=== PATIENT | female | born 1990 | race African-American/Black ===

== ENCOUNTER 2024-02-26 08:58 | Emergency (ER) | payer SELFPAY ==
[2024-02-26 09:04] VITALS: BP 126/87; PULSE 98; RESP 20; TEMP 97.7; BMI 28.3
== END 2024-02-26 10:42 | disposition home or self-care (01) ==
LOC: JERFT 08:58
DX: S93.402A Sprain of unspecified ligament of left ankle, initial encounter (principal); W01.0XXA Fall on same level from slipping, tripping and stumbling without subsequent striking against object, initial encounter
CPT/HCPCS: 73610-TC-LT-FY; 99283-25